=== PATIENT | female | born 1960 | race Caucasian/White ===

== ENCOUNTER 2018-03-31 09:58 | Emergency (ER) | payer MEDICARE, OTHER ==
[~2018-03-31] VITALS: Ht 165.1 cm; Wt 103.7 kg
[~2018-03-31 09:58] MED LIST: AMLO-150 PO; CALC-126 PO; CEPH-368 PO; CHOL400C11 PO; CHOL500045 PO; CYAN2000 PO; CYCL-259 PO; ERGO500017 PO; ESCI20TA PO; ESCI20TA10 PO; Ferrous Sulfate PO; HYDR-3245 PO; HYDR4TAB48 PO; LEVO100T5 PO; METH750T87 PO; MORP15TA3 PO; NADO40TA PO; OXYC-302 PO; OXYC15TA PO; RAMI10CA59 PO; TEMA30CA PO; VITA1CAP PO; iron PO
[2018-03-31] MEDS ORDERED: ALBUTEROL/IPRATROPIUM 2.5MG/0.5MG, 3 ML NPPB ONE (10:30)
[2018-03-31 10:51] LABS: BASOPHILS # (AUTO) 0.04 x10^3/uL (0-0.1); BASOPHILS % (AUTO) 0 % (0-1); EOSINOPHILS # (AUTO) 0.24 x10^3/uL (0-0.4); EOSINOPHILS % (AUTO) 2 % (1-7); LYMPHOCYTES # (AUTO) 2.28 x10^3/uL (1-3.4); LYMPHOCYTES % (AUTO) 21 % (22-44); MD NO; MEAN CORPUSCULAR HEMOGLOBIN 28.6 pg (27.0-34.8); MEAN CORPUSCULAR HGB CONC 32.3 g/dL (32.4-35.8); MEAN CORPUSCULAR VOLUME 88.4 fL (80-100); MEAN PLATELET VOLUME 8.3 fL (7.4-10.4); MONOCYTES % (AUTO) 7 % (2-9); NEUTROPHILS # (AUTO) 7.42 x10^3/uL (1.8-6.8); NEUTROPHILS % (AUTO) 69 % (42-75); PLATELET COUNT 366 x10^3/uL (130-400); RED BLOOD COUNT 4.66 x10^6/uL (3.82-5.3); RED CELL DISTRIBUTION WIDTH 14.7 % (9.6-15.2)
[2018-03-31 11:03] LABS: ALBUMIN 3.2 g/dL (3.4-5.0); ANION GAP 6 mmol/L (5-15); CALCIUM 8.7 mg/dL (8.5-10.1); CHLORIDE 109 mmol/L (98-107)
[2018-03-31 11:08] LABS: ALANINE AMINOTRANSFERASE 17 U/L (12-78); ALKALINE PHOSPHATASE 107 U/L (45-117); BILIRUBIN,TOTAL 0.4 mg/dL (0.2-1.0); CREATININE 0.73 mg/dL (0.55-1.02); TOTAL PROTEIN 7.5 g/dL (6.4-8.2); TROPONIN I 0.021 ng/mL (0.000-0.045)
--- NOTE | 2018-03-31 12:21 | NUR ---
pt to room from lobby
[2018-03-31] MEDS ORDERED: ALBUTEROL/IPRATROPIUM 2.5MG/0.5MG, 3 ML ONE (12:37)
--- NOTE | 2018-03-31 12:41 | NUR ---
RT at BS
[2018-03-31 12:57] VITALS: BP 147/96
--- NOTE | 2018-03-31 12:57 | NUR ---
pt upright on gurney awake & more comfortable, responds approp to staff, NAD, comfort meaures provided, call light within reach.
--- NOTE | 2018-03-31 13:16 | NUR ---
Patient given discharge instructions and Rx, they have confirmed that they understand the instructions. Patient ambulatory with steady gait.
== END 2018-03-31 13:17 | disposition home or self-care (01) ==
LOC: ED 12:54
DX: J15.9 Unspecified bacterial pneumonia (principal); Z87.891 Personal history of nicotine dependence
CPT/HCPCS: 36415; 71046; 80053; 83880; 84484; 85025; 94640; 99284; J7512; J7620

== ENCOUNTER 2018-04-02 10:44 | Emergency (ER) | payer MEDICARE ==
[~2018-04-02] VITALS: Ht 165.1 cm; Wt 104.6 kg
[2018-04-02 10:51] VITALS: BP 185/114
--- NOTE | 2018-04-02 11:40 | NUR ---
57YO/F TO ED FOR WORSENING ABD PAIN, PT STATES SHE WAS HERE 2D AGO FOR FLU SXS (COUGH, N/V) AND SENT HOME WITH ABX AND ABD PAIN WORSE AFTER THAT. PT PLACED ON MONITOR, NAD AT THIS TIME
== END 2018-04-02 13:50 | disposition home or self-care (01) ==
LOC: ED 12:00
DX: J12.9 Viral pneumonia, unspecified (principal)
CPT/HCPCS: 99281

== ENCOUNTER 2019-10-21 18:34 | Inpatient (IN) | payer MEDICARE ==
[~2019-10-21] VITALS: Ht 165.1 cm; Wt 98.6 kg
[~2019-10-21 18:34] MED LIST changes: +MORP-29 PO; -MORP15TA3 PO; -NADO40TA PO; +NADO40TA2 PO; -OXYC15TA PO; +OXYC15TA3 PO
--- NOTE | 2019-10-21 18:53 | NUR ---
report from Aiyana sharp to assume care
[2019-10-21] MEDS ORDERED: DIPHENHYDRAMINE 50 MG/ML, 1ML ONE (19:17)
[2019-10-21] MEDS ORDERED: PROCHLORPERAZINE 5 MG/ML, 2ML ONE (19:17)
--- NOTE | 2019-10-21 19:20 | NUR ---
Pt c/o headache, medicated per apr, AAOx3, appears restless
[2019-10-21 19:30] LABS: BASOPHILS # (AUTO) 0.03 x10^3/uL (0-0.1); BASOPHILS % (AUTO) 0 % (0-1); EOSINOPHILS # (AUTO) 0.11 x10^3/uL (0-0.4); EOSINOPHILS % (AUTO) 1 % (1-7); LYMPHOCYTES # (AUTO) 1.96 x10^3/uL (1-3.4); LYMPHOCYTES % (AUTO) 20 % (22-44); MD NO; MEAN CORPUSCULAR HGB CONC 32.3 g/dL (32.4-35.8); MEAN CORPUSCULAR VOLUME 89.8 fL (80-100); MEAN PLATELET VOLUME 7.8 fL (7.4-10.4); MONOCYTES # (AUTO) 0.72 x10^3/uL (0.2-0.8); MONOCYTES % (AUTO) 7 % (2-9); NEUTROPHILS # (AUTO) 7.07 x10^3/uL (1.8-6.8); NEUTROPHILS % (AUTO) 72 % (42-75); PLATELET COUNT 328 x10^3/uL (130-400); RED BLOOD COUNT 4.76 x10^6/uL (3.82-5.3); RED CELL DISTRIBUTION WIDTH 14.9 % (9.6-15.2)
[2019-10-21] MEDS ORDERED: DIPHENHYDRAMINE 50 MG/ML, 1ML IVPush ONE (19:30)
[2019-10-21] MEDS ORDERED: PROCHLORPERAZINE 5 MG/ML, 2ML IVPush ONE (19:30)
[2019-10-21 19:41] LABS: ALANINE AMINOTRANSFERASE 16 U/L (12-78); ALBUMIN 3.9 g/dL (3.4-5.0); ANION GAP 6 mmol/L (5-15); CALCIUM 9.6 mg/dL (8.5-10.1); CHLORIDE 108 mmol/L (98-107); CREATININE 0.86 mg/dL (0.55-1.02)
[2019-10-21 19:43] LABS: ALKALINE PHOSPHATASE 103 U/L (45-117); BILIRUBIN,TOTAL 0.7 mg/dL (0.2-1.0); TOTAL PROTEIN 8.2 g/dL (6.4-8.2)
[2019-10-21 19:45] LABS: MICROSCOPIC NOT IND
[2019-10-21] MEDS ORDERED: DEXAMETHASONE 4 MG/ML, 1ML IVPush ONE (21:00)
[2019-10-21] MEDS ORDERED: LORazepam 2 MG/ML, 1ML IVPush ONE ×2 (21:00→22:30)
[2019-10-21] MEDS ORDERED: DEXAMETHASONE 4 MG/ML, 1ML ONE (21:04)
[2019-10-21] MEDS ORDERED: LORazepam 2 MG/ML, 1ML ONE ×2 (21:05→22:30)
--- NOTE | 2019-10-21 21:10 | NUR ---
Pt restless and c/o headache, at bedside, pt medicated per emar,
[2019-10-21] MEDS ORDERED: ZIPRASIDONE 20 MG INJ IM ONE ×2 (22:55→23:00)
--- NOTE | 2019-10-21 22:58 | NUR ---
Pt continually getting out of bed, ripping off monitors, and not cooperating or following requests to stay in bed. Administering geodon per emar
--- NOTE | 2019-10-21 23:15 | NUR ---
Pt continues to remove monitors, try to sit up and get out of bed, and not cooperate. this rn at bedside continuously redirecting and ensuring pt safety in bed
--- NOTE | 2019-10-21 23:30 | NUR ---
Pt standing next to bed, took clothes off, and dumped trashcan on floor. This rn assisted pt back to bed, reapplied monitors and gown, and provided warm blankets.
--- NOTE | 2019-10-21 23:42 | NUR ---
Pt appears to be drowsy, resting in gurney with eyes closed. Continues to remove self from monitors. orders being placed for labetalol iv
[2019-10-21] MEDS ORDERED: OMNIPAQUE 350 MG/ML, 100ML BOTTLE ONE (23:44)
[2019-10-21 23:46] LABS: AMPHETAMINE SCREEN, URINE Negative (Negative); BARBITURATE SCREEN, URINE Negative (Negative); BENZODIAZEPINE SCREEN, URINE Negative (Negative); CANNABINOID SCREEN, URINE Positive (Negative); COCAINE SCREEN, URINE Negative (Negative); METHADONE SCREEN, URINE Negative (Negative); OPIATE SCREEN, URINE Positive (Negative)
[2019-10-22] MEDS ORDERED: LABETALOL 5MG/ML, 20ML IVPush ONE
[2019-10-22] MEDS ORDERED: ERGOCALCIFEROL 50,000 UNIT CAPSULE PO SCH (00:30)
[2019-10-22] MEDS ORDERED: BISACODYL 10 MG SUPP PR PRN (00:30)
[2019-10-22] MEDS ORDERED: POLYETHYLENE GLYCOL 17 GM PACKET PO PRN (00:30)
[2019-10-22] MEDS ORDERED: LORazepam 2 MG/ML, 1ML ONE (00:59)
[2019-10-22] MEDS ORDERED: LORazepam 2 MG/ML, 1ML IVPush ONE (01:00)
--- NOTE | 2019-10-22 01:00 | NUR ---
Pt removing clothes and attempting to get out of bed, stating she needs to urinate, pt offered bed diallo multiple times and pt continues to refuse, pt continues to remove self from monitor. Pt medicated per emar, sitter at bedside at this time to ensure safety
--- NOTE | 2019-10-22 01:00 | NUR ---
WALKING BY ROOM AT THIS TIME AND PT NOTED TO BE PULLING OFF ALL MONITORS, REMOVING CLOTHES, ATTEMPTING TO GET OUT OF BED IN SPITE OF REDIRECTION FROM PA AND PTS PRIMARY NURSE AT BEDSIDE. ANOTHER STAFF MEMBER ARRIVES AND 4 STAFF REQUIRED TO GET THIS PT BACK TO BED, PT NOT FOLLOWING COMMANDS, CONTINUE TO ATTEMPT TO REMOVE IV, MONITORS, CRAWL OUT OF BED AND IS UNSTEADY. PT HAS BEEN MEDICATED ALREADY, AWARE, WILL PLACE PT IN SOFT RESTRAINTS MEDICAL AT THIS TIME AND WINE CONSULTANT SITTING OUTSIDE ROOM FOR PT SAFETY
--- NOTE | 2019-10-22 03:51 | NUR ---
REPORT RECEIVED FROM RHIANNON AZUL. PT MOVED TO ED03 FOR CONTINUED MONITORING.
--- NOTE | 2019-10-22 05:00 | NUR ---
DISCUSSED FOLLOW UP IMAGING WITH DR. MONTERO. NO NEW ORDERS AT THIS TIME.
--- NOTE | 2019-10-22 05:18 | NUR ---
PT MOVING AROUND IN HOSPTIAL BED, HAS REMOVED GOWN AGAIN. SOFT RESTRAINTS IN PLACE, PT AGITATED, AOX4, BUT IMPULSIVE, DOES NOT KNOW OWN LIMITATIONS AND UNCOOPERATIVE. MONITORING IN PLACE, CALL LIGHT WITHIN REACH, SITTER IN HALLWAY WITHIN LINE OF SIGHT.
[2019-10-22 05:27] LABS: ANION GAP 9 mmol/L (5-15); BASOPHILS % (AUTO) 0 % (0-1); CALCIUM 9.8 mg/dL (8.5-10.1); CHLORIDE 110 mmol/L (98-107); CREATININE 0.97 mg/dL (0.55-1.02); EOSINOPHILS % (AUTO) 0 % (1-7); LYMPHOCYTES # (AUTO) 0.68 x10^3/uL (1-3.4); LYMPHOCYTES % (AUTO) 7 % (22-44); MD NO; MEAN CORPUSCULAR HEMOGLOBIN 29.2 pg (27.0-34.8); MEAN CORPUSCULAR HGB CONC 32.6 g/dL (32.4-35.8); MEAN CORPUSCULAR VOLUME 89.8 fL (80-100); MEAN PLATELET VOLUME 8.3 fL (7.4-10.4); MONOCYTES # (AUTO) 0.04 x10^3/uL (0.2-0.8); MONOCYTES % (AUTO) 0 % (2-9); NEUTROPHILS # (AUTO) 8.93 x10^3/uL (1.8-6.8); NEUTROPHILS % (AUTO) 93 % (42-75); PLATELET COUNT 356 x10^3/uL (130-400); RED BLOOD COUNT 4.89 x10^6/uL (3.82-5.3); RED CELL DISTRIBUTION WIDTH 14.9 % (9.6-15.2)
--- NOTE | 2019-10-22 06:53 | NUR ---
REPORT TO RHIANNON TAMEZ.
--- NOTE | 2019-10-22 07:24 | NUR ---
Report from Tanisha JURADO. Pt restless in bed, c/o WELLS and nausea. Pt reports feeling urge to urinate. Pt provided with hospital gown and clean non-skid socks. Pt able to be verbally coached in standing and transfering to bedside commode. Pt sat on commode, reports unable to void at this time. Pt placed in hospital bed and positioned for comfort. All monitors reapplied and coban wrap applied to PIV to attempt to discourage pt removing it. Pt provided education on importance of leaving monitors in place. Pt verbalizes understanding but remains restless in bed. Pt A&O to self, reports correct month and year, states "I don't know" when asked where she is. Pt unable to report the name of current president. Sitter is at bedside to visualize pt for safety.
[2019-10-22] MEDS ORDERED: AMLODIPINE 5 MG TABLET ONE (07:31)
[2019-10-22] MEDS ORDERED: SENNA/DOCUSATE TABLET ONE (07:31)
[2019-10-22] MEDS ORDERED: ONDANSETRON ODT 4 MG ONE (07:31)
[2019-10-22] MEDS ORDERED: ACETAMINOPHEN 325 MG TABLET ONE (07:32)
[2019-10-22] MEDS: ONDANSETRON ODT 4 MG PO PRN ×2 (07:38→17:44)
[2019-10-22] MEDS: SODIUM CHLORIDE FLUSH 10ML SYR IVF SCH ×2 (07:38→20:57)
[2019-10-22] MEDS: SENNA/DOCUSATE TABLET PO SCH (07:40)
[2019-10-22] MEDS: ACETAMINOPHEN 325 MG TABLET PO PRN ×3 (07:40→23:33)
[2019-10-22] MEDS: AMLODIPINE 5 MG TABLET PO SCH ×2 (07:40→20:49)
--- NOTE | 2019-10-22 07:43 | NUR ---
Pt medicated with tylenol for WELLS and zofran for nausea as well as morning meds that were available from [facility]. Remainder of morning meds requested from pharmacy. Lights dimmed in room per pt request. Pt provided cool washcloth for her head to help WELLS.
[2019-10-22] MEDS ORDERED: hydrALAzine 20 MG/ML, 1ML ONE ×2 (07:49→16:18)
--- NOTE | 2019-10-22 07:56 | NUR ---
Called and spoke with Kianna SHIRLEY to update her on pt condition and current VS. Orders recieved for 10mg Hydralazine IVP. Pt medicated per order. Pt assisted to bsc to void by EMT. Pt able to void and have BM at this time. Pt assisted back to bed and positioned for comfort in bed. Pt removed BP cuff and continuous pulse ox. teletypesetter monitor remains in place. All safety measures observed, bed alarm engaged and sitter within eyesight.
[2019-10-22] MEDS: LEVOTHYROXINE 100 MCG TABLET PO SCH (08:18)
[2019-10-22] MEDS: MULTIVITS,STRESS FORMULA 1 TABLET PO SCH (08:21)
[2019-10-22] MEDS: NADOLOL 20 MG TABLET PO SCH (08:21)
[2019-10-22] MEDS: RAMIPRIL 5 MG CAP PO SCH ×2 (08:22→20:49)
[2019-10-22] MEDS: ESCITALOPRAM 10MG TABLET PO SCH (08:23)
--- NOTE | 2019-10-22 08:25 | NUR ---
Pt medicated with remaining morning meds per APR. Pt able to position herself on her side for comfort. Pt denies other needs. Continuous heart monitor remains in place, all safety measures observed.
--- NOTE | 2019-10-22 08:38 | NUR ---
Late entry: Pt's soft restraints removed at 0724. Pt verbalizes she will leave monitors in place.
--- NOTE | 2019-10-22 08:44 | NUR ---
Pt to MRI via bed and dialysis tech. Pt condition and expectations discussed with dialysis tech. Pt states she is agreeable to completing MRI.
[2019-10-22] MEDS ORDERED: hydrALAzine 20 MG/ML, 1ML IV ONE (09:00)
[2019-10-22] MEDS ORDERED: FERROUS SULFATE 325 MG TABLET PO SCH (09:00)
--- NOTE | 2019-10-22 09:32 | NUR ---
Pt back from MRI. media monitor reapplied. Pt now knows she is in the hospital, in [place], year 2020, Shashank president. Pt's Fadi at bedside. Pt speaking with Fadi, asking how she got to the hospital and why they brought her in. Pt encouraged to drink small sips of water. Pt reports nausea improved after medications given but still c/o WELLS. Pt calm, denies other needs at this time.
--- NOTE | 2019-10-22 09:50 | NUR ---
Kianna MINA at bedside to evaluate pt and discuss POC.
[2019-10-22] MEDS ORDERED: hydrALAzine 20 MG/ML, 1ML IV PRN (10:30)
--- NOTE | 2019-10-22 10:52 | NUR ---
Pt c/o 10/01 WELLS. Pt now oriented x4, answers all questions appropriately. POC discussed with pt.
--- NOTE | 2019-10-22 11:15 | NUR ---
Pt reports she has hx of migraine WELLS, used to take immitrex but stopped due to not having migraines anymore. Pt reports that recently she has been getting migraine WELLS again. Called Oswaldo MINA to update her on pt condition and VS. Awaiting further orders.
--- NOTE | 2019-10-22 11:57 | NUR ---
Pt up to bsc to void and back to bed. Pt able to position self for comfort in bed, denies other needs.
--- NOTE | 2019-10-22 12:40 | NUR ---
Pt resting in bed, resp even and unlabored, NADN.
--- NOTE | 2019-10-22 13:37 | NUR ---
PT C/O WELLS/MIGRAINE. SPOKE WITH CHARITY MINA, REQUESTING MIGRAINE MEDS. KEELEY TO REVIEW CHART. NO NEW ORDERS RECEIVED AT THIS TIME.
[2019-10-22] MEDS ORDERED: DIPHENHYDRAMINE 50 MG/ML, 1ML ONE (13:53)
[2019-10-22] MEDS ORDERED: METOCLOPRAMIDE 5 MG/ML, 2ML ONE (13:53)
[2019-10-22] MEDS ORDERED: METOCLOPRAMIDE 5 MG/ML, 2ML IVPush SCH (14:00)
[2019-10-22] MEDS ORDERED: MAGNESIUM SULFATE PMX 2GM/50ML 50 ML IV ONE (14:00)
[2019-10-22] MEDS: DIPHENHYDRAMINE 50 MG/ML, 1ML IVPush PRN ×2 (14:20→20:49)
--- NOTE | 2019-10-22 14:21 | NUR ---
Pt medicated per MAR for continued migraine WELLS. Pt denies other needs. Pt's Fadi again at bedside.
--- NOTE | 2019-10-22 15:44 | NUR ---
REPORT GIVEN TO JORDAN JURADO
[2019-10-22] MEDS ORDERED: MAGNESIUM SULFATE PMX 2GM/50ML 50 ML ONE (16:03)
--- NOTE | 2019-10-22 16:13 | NUR ---
Pt with continued WELLS. MGSO4 IVPB initiated per MAR.
--- NOTE | 2019-10-22 16:23 | NUR ---
Pt medicated with hydralazine per MAR for HTN.
[2019-10-22 17:16] VITALS: BP 175/107
[2019-10-22 20:00] VITALS: BP 169/100
[2019-10-22] MEDS ORDERED: MELATONIN 5 MG TABLET PO PRN (21:00)
[2019-10-22] MEDS ORDERED: TEMAZEPAM 15 MG CAPSULE PO PRN (21:00)
[2019-10-23 00:58] VITALS: BP 173/100
[2019-10-23] MEDS: DIPHENHYDRAMINE 50 MG/ML, 1ML IVPush PRN (06:41)
[2019-10-23] MEDS: ACETAMINOPHEN 325 MG TABLET PO PRN (06:41)
[2019-10-23] MEDS: ONDANSETRON ODT 4 MG PO PRN (06:41)
[2019-10-23 06:43] VITALS: BP 144/87
[2019-10-23] MEDS: SODIUM CHLORIDE FLUSH 10ML SYR IVF SCH (09:00)
[2019-10-23] MEDS: SENNA/DOCUSATE TABLET PO SCH (09:00)
[2019-10-23] MEDS: ESCITALOPRAM 10MG TABLET PO SCH (09:05)
[2019-10-23] MEDS: NADOLOL 20 MG TABLET PO SCH (09:05)
[2019-10-23] MEDS: AMLODIPINE 5 MG TABLET PO SCH (09:05)
[2019-10-23] MEDS: MULTIVITS,STRESS FORMULA 1 TABLET PO SCH (09:05)
[2019-10-23] MEDS: RAMIPRIL 5 MG CAP PO SCH (09:06)
[2019-10-23] MEDS: LEVOTHYROXINE 100 MCG TABLET PO SCH (09:06)
[2019-10-23] MEDS ORDERED: SUMATRIPTAN 25 MG TABLET PO PRN (11:30)
[2019-10-23 12:04] VITALS: BP 129/83
== END 2019-10-23 15:45 | disposition home or self-care (01) | DRG 78 ==
LOC: ED 20:30 → EDIP 10-22 00:04 → 4EST 10-22 16:34
PROVIDERS: ADMIT Family Medicine; ATTEND Family Medicine
DX: I67.4 Hypertensive encephalopathy (principal); I16.1 Hypertensive emergency; F41.9 Anxiety disorder, unspecified; G47.00 Insomnia, unspecified; I10 Essential (primary) hypertension; M79.7 Fibromyalgia; G43.909 Migraine, unspecified, not intractable, without status migrainosus; E03.9 Hypothyroidism, unspecified; E66.9 Obesity, unspecified; Z82.49 Family history of ischemic heart disease and other diseases of the circulatory system; Z90.711 Acquired absence of uterus with remaining cervical stump; Z91.14 Patient's other noncompliance with medication regimen; Z98.84 Bariatric surgery status; Z87.891 Personal history of nicotine dependence; Z68.36 Body mass index [BMI] 36.0-36.9, adult; W18.30XA Fall on same level, unspecified, initial encounter; Y93.89 Activity, other specified; Y92.89 Other specified places as the place of occurrence of the external cause; Y99.8 Other external cause status
CPT/HCPCS: 36415; 70450; 70496; 70551; 80048; 80053; 80307; 81003; 85025; 93005; 99291; G0378; J1100; J3486; Q0162; Q9967; J0360; J0780; J1200; J2060; J2765; J3475

== ENCOUNTER 2019-11-15 17:15 | Emergency (ER) | payer MEDICARE ==
[~2019-11-15] VITALS: Ht 165.1 cm; Wt 92.6 kg
[2019-11-15 17:42] VITALS: BP 166/103
[2019-11-15 18:34] LABS: CHLORIDE 111 mmol/L (98-107)
[2019-11-15 18:41] LABS: BASOPHILS # (AUTO) 0.02 x10^3/uL (0-0.1); BASOPHILS % (AUTO) 0 % (0-1); EOSINOPHILS # (AUTO) 0.18 x10^3/uL (0-0.4); EOSINOPHILS % (AUTO) 2 % (1-7); LYMPHOCYTES # (AUTO) 1.89 x10^3/uL (1-3.4); LYMPHOCYTES % (AUTO) 23 % (22-44); MD NO; MEAN CORPUSCULAR HEMOGLOBIN 28.9 pg (27.0-34.8); MEAN CORPUSCULAR HGB CONC 31.7 g/dL (32.4-35.8); MONOCYTES # (AUTO) 0.63 x10^3/uL (0.2-0.8); MONOCYTES % (AUTO) 8 % (2-9); NEUTROPHILS # (AUTO) 5.38 x10^3/uL (1.8-6.8); NEUTROPHILS % (AUTO) 66 % (42-75); PLATELET COUNT 274 x10^3/uL (130-400); RED BLOOD COUNT 4.74 x10^6/uL (3.82-5.3)
[2019-11-15 18:53] LABS: ALANINE AMINOTRANSFERASE 16 U/L (12-78); ALBUMIN 3.5 g/dL (3.4-5.0); ALKALINE PHOSPHATASE 89 U/L (45-117); ANION GAP 7 mmol/L (5-15); BILIRUBIN,TOTAL 0.6 mg/dL (0.2-1.0); CALCIUM 8.8 mg/dL (8.5-10.1); CREATININE 0.86 mg/dL (0.55-1.02); TOTAL PROTEIN 7.5 g/dL (6.4-8.2); TROPONIN I < 0.015 ng/mL (0.000-0.045)
--- NOTE | 2019-11-15 19:05 | NUR ---
NIL X 1
--- NOTE | 2019-11-15 19:24 | NUR ---
EXTERMINATOR HELPER TERMITE: NIL X 2 WHEN CALLED FOR ROOM.
--- NOTE | 2019-11-15 19:37 | NUR ---
NIL X 3 WHEN CALLED FOR ROOM.
--- NOTE | 2019-11-15 23:06 | NUR ---
NEEDLE LOOM WEAVER: TC TO PT. REQUESTING PT. TO RETURN TO ED FOR FURTHER EVALUATION PER DR. SHAH REQUEST. MESSAGE LEFT FOR PT. THERE WAS NO ANSWER.
== END 2019-11-15 19:39 | disposition left against medical advice (07) ==
LOC: ED 19:30
DX: R51 Headache (principal); R53.1 Weakness; I10 Essential (primary) hypertension
CPT/HCPCS: 36415; 71046; 80053; 84484; 85025; 99284

== ENCOUNTER → 2020-01-10 | Outpatient (CLI) | payer MEDICARE | END | disposition home or self-care (01) | LOC: CFH 13:29 | PROVIDERS: ATTEND Internal Medicine Cardiovascular Disease | DX: I35.8 Other nonrheumatic aortic valve disorders (principal); R07.89 Other chest pain; R94.31 Abnormal electrocardiogram [ECG] [EKG]; I10 Essential (primary) hypertension; E78.5 Hyperlipidemia, unspecified | CPT/HCPCS: 93306 ==

== ENCOUNTER → 2020-01-11 | Outpatient (CLI) | payer MEDICARE ==
[~2020-01-11] MED LIST changes: +REGADENOSON 0.4 MG/5 ML SYRINGE ONE
== END | disposition home or self-care (01) ==
LOC: CFH 11:52
PROVIDERS: ATTEND Internal Medicine Cardiovascular Disease
DX: R94.31 Abnormal electrocardiogram [ECG] [EKG] (principal); R07.89 Other chest pain; I10 Essential (primary) hypertension
CPT/HCPCS: 78452; 93017; A9502; J2785

== ENCOUNTER 2020-02-02 13:48 | Emergency (ER) | payer MEDICARE ==
[~2020-02-02] VITALS: Ht 165.1 cm; Wt 92.4 kg
[~2020-02-02 13:48] MED LIST changes: -REGADENOSON 0.4 MG/5 ML SYRINGE ONE
--- NOTE | 2020-02-02 15:19 | NUR ---
PT TO ROOM FROM LOBBY
[2020-02-02] MEDS ORDERED: SODIUM CHLORIDE FLUSH 10ML SYR IVF ONE (15:30)
[2020-02-02 15:44] LABS: BASOPHILS % (AUTO) 1 % (0-1); EOSINOPHILS % (AUTO) 3 % (1-7); LYMPHOCYTES % (AUTO) 30 % (22-44); MD NO; MEAN CORPUSCULAR HEMOGLOBIN 29.4 pg (27.0-34.8); MEAN CORPUSCULAR HGB CONC 32.4 g/dL (32.4-35.8); MEAN PLATELET VOLUME 8.3 fL (7.4-10.4); MONOCYTES % (AUTO) 9 % (2-9); NEUTROPHILS % (AUTO) 58 % (42-75); PLATELET COUNT 284 x10^3/uL (130-400); RED CELL DISTRIBUTION WIDTH 14.7 % (9.6-15.2)
--- NOTE | 2020-02-02 15:53 | NUR ---
PATIENT IS A 59F COMPLAINING OF LLQ PAIN X 2 WEEKS. SHE HAD A SYNCOPAL EPISODE WEDNESDAY WITH ABDOMINAL CRAMPS. URINE COLLECTED AND SENT, CYCLING VITALS AND SPO2. CALL LIGHT WITHIN REACH. NO ADDITIONAL NEEDS VERBALIZED AT THIS TIME.
[2020-02-02 15:55] LABS: ALANINE AMINOTRANSFERASE 26 U/L (12-78); ALBUMIN 3.8 g/dL (3.4-5.0); ANION GAP 5 mmol/L (5-15); CALCIUM 9.1 mg/dL (8.5-10.1); CHLORIDE 109 mmol/L (98-107); CREATININE 0.82 mg/dL (0.55-1.02)
[2020-02-02 15:57] LABS: ALKALINE PHOSPHATASE 83 U/L (45-117); BILIRUBIN,TOTAL 0.6 mg/dL (0.2-1.0); TOTAL PROTEIN 7.6 g/dL (6.4-8.2)
[2020-02-02 16:03] LABS: MICROSCOPIC NOT IND
[2020-02-02] MEDS ORDERED: OMNIPAQUE 350 MG/ML, 100ML BOTTLE ONE (16:53)
--- NOTE | 2020-02-02 16:54 | NUR ---
PT BACK FROM CT, VITALS UPDATED. NO ADDITIONAL NEEDS VERBALIZED AT THIS TIME, CALL LIGHT WITHIN REACH.
[2020-02-02] MEDS ORDERED: MORPHINE SULFATE 4 MG/ML, 1ML ONE (16:57)
[2020-02-02] MEDS ORDERED: ONDANSETRON 2MG/ML, 2ML ONE (16:57)
[2020-02-02] MEDS ORDERED: MORPHINE SULFATE 4 MG/ML, 1ML IVPush PRN (17:00)
[2020-02-02] MEDS ORDERED: ONDANSETRON 2MG/ML, 2ML IVPush ONE (17:00)
--- NOTE | 2020-02-02 17:11 | NUR ---
MEDICATED PATIENT PER EMAR. PT IS RESTING COMFORTABLY. CALL LIGHT WITHIN REACH. WAITING ON CT RESULTS.
[2020-02-02 18:07] VITALS: BP 123/77
--- NOTE | 2020-02-02 18:08 | NUR ---
PATIENT RESTING COMFORTABLY AWAITING CT RESULTS. CALL LIGHT WITHIN REACH. NO ADDITIONAL NEEDS VERBALIZED
--- NOTE | 2020-02-02 18:50 | NUR ---
REPORT FROM RHIANNON ENGEL. PT CARE ASSUMED.
== END 2020-02-02 19:23 | disposition home or self-care (01) ==
LOC: ED 15:36
DX: R10.32 Left lower quadrant pain (principal); R11.2 Nausea with vomiting, unspecified; K59.00 Constipation, unspecified; I10 Essential (primary) hypertension; Z90.710 Acquired absence of both cervix and uterus
CPT/HCPCS: 36415; 74177; 80053; 81003; 83690; 85025; 96374; 96375; 99285; J2270; J2405; Q9967